=== PATIENT | male | born 1975 | race Hispanic/Latino ===

== ENCOUNTER 2018-08-30 16:10 | Emergency (ER) | payer SELFPAY ==
[2018-08-30] MEDS ORDERED: Ketorolac Tromethamine 30 MG/ML VIAL ONE (16:49)
[2018-08-30] MEDS ORDERED: Diazepam 5 MG TAB ONE (16:50)
[2018-08-30] MEDS ORDERED: Dexamethasone 4 MG TAB ONE (16:50)
== END 2018-08-30 17:12 | disposition home or self-care (01) ==
LOC: ERS 16:10
DX: M54.5 Low back pain (principal)
CPT/HCPCS: 96372; J1885; J8540